=== PATIENT | male | born 1950 | race Caucasian/White ===

== ENCOUNTER 2023-12-02 11:33 | Emergency (ER) | payer MEDICARE, OTHER, SELFPAY ==
[2023-12-02 11:34] VITALS: BP 179/79
--- NOTE | 2023-12-02 12:46 | ED.GENMED ---
History of Present Illness
General
Chief Complaint: Fall
Source: patient
Time Seen by Provider: 12/02/23 12:12
History of Present Illness
History of Present Illness:
73-year-old male presents to the emergency room for evaluation due to injuries he sustained from a fall. Approximate 36 hours ago the patient was attempting to descend a flight of stairs in the dark because power was out. He fell down
approximately 13 steps. He did not strike his head significantly. No loss of consciousness. He is complaining of pain in his right shoulder, right upper back and right arm. Pain is worse with movement of the right arm. No abdominal pain. No
headache. No shortness of breath.
Past History
Past History
ED Past Medical History: HTN, NIDDM and Other (CKD)
ED Past Surgical History: None
Social History
Tobacco: Former smoker
Alcohol: Daily (Scotch 2 glasses)
Personal:
Living: with family
Phy Exam
Physical Exam
Physical Exam:
General: Awake, Alert, Oriented X3. No acute distress.
Vitals: unremarkable
Head: Atraumatic
Eyes: Pupils equal, EOMI
Throat: Airway intact, no exudates
Neck: Trachea midline, no midline tenderness to palpation
Chest: No anterior or lateral chest tenderness
Lungs: Clear and equal b/l
Heart: Regular rate, no murmurs
Abd: Soft, Nontender, No pulsatile mass
Back: Positive tenderness palpation over the right paraspinal musculature in the upper thoracic region. No pain to palpation or percussion of the midline cervical, thoracic or lumbar spine.
Neuro: Nonfocal
Skin: Warm, dry, no rash
Extremities: pulses equal b/l, no edema
Course
Orders/Labs/Results
Orders:
Orders
12/02/23 12:46
Ibuprofen [Motrin] 600 mg PO NOW STA
CR Thoracic Spine 3 Views Urgent
Reason For Exam: pain after a fall
Shoulder, Right, Trauma [CR Shoulder, Trauma - Right] Urgent
Comment:
Reason For Exam: pain after a fall
12/02/23 13:30
Acetaminophen [Tylenol] 1,000 mg .ROUTE .STK-MED ONE
12/02/23 13:31
Acetaminophen [Tylenol] 1,000 mg PO NOW STA
Vital Signs
Initial and Last Documented VS:
Initial Vital Signs
Temp Pulse Resp BP Pulse Ox
98.4 F 78 20 179/79 98
12/02/23 11:34 12/02/23 11:34 12/02/23 11:34 12/02/23 11:34 12/02/23 11:34
Last Documented Vital Signs
Temp Pulse Resp BP Pulse Ox
98.4 F 64 20 143/64 99
12/02/23 11:34 12/02/23 15:04 12/02/23 15:04 12/02/23 15:04 12/02/23 15:04
MDM/Problems Addressed
Differential Diagnosis Includes:
shoulder strain, humerus fx, clavicle fx, thoracic vertebral fx
MDM/Problems Addressed:
Patient has no obvious fracture on shoulder or the thoracic spine imaging. He is ambulatory. He does have shoulder pain but the pain may be more related to a shoulder sprain or rotator cuff injury.
*Radiology
Radiology exam reviewed: preliminary read by ED provider (Personally viewed the patient's shoulder thoracic spine imaging. I see no acute fracture) and radiology read reviewed
*Pulse Oximetry
Patient hypoxic: no
*Critical Care Note
Total Time (30-74mins, 75-104mins- exclusive of procedures): Not Applicable
ED Attending Note
-
Portions of this chart may have been created with voice recognition software.� Occasional wrong word or��sound alike� substitutions may have occurred due to the inherent limitations of voice recognition software.
Discharge Plan
Departure
Patient Disposition: Home (Routine Discharge)
Date of Disposition: 12/02/23
Time of Disposition: 14:43
Patient with high blood pressure during this ER visit?: Yes
Condition: Good
Discharge Problem:
Acute thoracic myofascial strain, Strain of shoulder, right
Instructions: Back Muscle Strain (DC), Shoulder Sprain ED
Prescriptions:
New
metaxalone 800 mg tablet
800 mg PO TID PRN (Reason: muscle pain) Qty: 20 0RF
No Action
atorvastatin 10 MG tablet
10 mg PO DAILY
amlodipine 5 MG tablet
5 mg PO DAILY
aspirin 81 MG tablet,delayed release (DR/EC)
81 mg PO HS
empagliflozin [Jardiance] 10 MG tablet
10 mg PO DAILY
lisinopril 10 MG tablet
10 mg PO DAILY
multivitamin with folic acid [Tab-A-Shane] 1 TABLET tablet
1 tab PO DAILY
cephalexin 500 MG capsule
500 mg PO Q8H Qty: 30 0RF
Referrals:
Morris Hoyos MD [Active] -
Interventions
Interventions:
*Risk Screen - Suicide Last Done: 12/02/23 11:34
*General Assessment Last Done: 12/02/23 11:34
*Neglect/Abuse Screening Last Done: 12/02/23 11:34
ED- Fall Risk Assessment Last Done: 12/02/23 15:08
*ED COVID-19 Vaccine History Last Done: 12/02/23 11:43
*Nursing Disposition Last Done: 12/02/23 15:08
ED-Musculoskeletal Assessment Last Done: 12/02/23 13:34
ED- Neurological Assessment Last Done: 12/02/23 13:34
ED-Skin Assessment Last Done: 12/02/23 13:34
Discharge Date and Time
Print Language: [id number]
[2023-12-02] MEDS: TYLENOL 1000 MG PO (13:31)
[2023-12-02 15:04] VITALS: BP 143/64
== END 2023-12-02 15:10 | disposition home or self-care (01) ==
LOC: EMR 11:33
PROVIDERS: EMERGENCY PHYSICIAN Emergency Medicine; FAMILY PHYSICIAN Internal Medicine
DX: S29.012A Strain of muscle and tendon of back wall of thorax, initial encounter (principal); S46.911A Strain of unspecified muscle, fascia and tendon at shoulder and upper arm level, right arm, initial encounter; W10.9XXA Fall (on) (from) unspecified stairs and steps, initial encounter; M25.511 Pain in right shoulder; M54.6 Pain in thoracic spine; I12.9 Hypertensive chronic kidney disease with stage 1 through stage 4 chronic kidney disease, or unspecified chronic kidney disease; E11.22 Type 2 diabetes mellitus with diabetic chronic kidney disease; N18.9 Chronic kidney disease, unspecified; Z87.891 Personal history of nicotine dependence
CPT/HCPCS: 99283; 72072; 73030

== ENCOUNTER 2024-10-25 12:13 | Outpatient (RCR) | payer MEDICARE, OTHER, SELFPAY | END 2024-10-25 23:59 | disposition home or self-care (01) | LOC: ROT 12:13 | PROVIDERS: ATTENDING PHYSICIAN Orthopaedic Surgery Hand Surgery; FAMILY PHYSICIAN Internal Medicine | DX: M25.531 Pain in right wrist (principal); Z73.6 Limitation of activities due to disability; Z91.81 History of falling | CPT/HCPCS: 97140; 97166; 97535 ==